=== PATIENT | male | born 1945 | race African-American/Black ===

== ENCOUNTER → 2016-12-21 | Outpatient (CLI) | payer MEDICARE, OTHER ==
[~2016-12-21] MED LIST: ACET50TAOT PO; ASCO25TA PO; ATOR40TA PO; CHLO125TA PO; K-TA1TAB PO; OMEP20CA3 PO; PLAV75TA38 PO; TRIA37.5 PO
[2016-12-21 11:40] LABS: MEAN CORPUSCULAR HEMOGLOBIN 29.3 pg (27.0-33.0); MEAN CORPUSCULAR HGB CONC 31.4 g/dl (32.0-36.5); MEAN CORPUSCULAR VOLUME 93.2 fl (80.0-96.0); RED CELL DISTRIBUTION WIDTH 11.8 % (11.5-14.5); WHITE BLOOD COUNT 5.5 K/mm3 (4.0-10.0)
[2016-12-21 12:34] LABS: ALBUMIN 4.1 GM/DL (3.2-5.2); ALBUMIN/GLOBULIN RATIO 1.05 (1.00-1.93); ALKALINE PHOSPHATASE 122 U/L (45-117); ALT/SGPT 60 U/L (12-78); ANION GAP 8 MEQ/L (8-16); AST/SGOT 33 U/L (15-37); BILIRUBIN,TOTAL 0.9 MG/DL (0.2-1.0); BLOOD UREA NITROGEN 21 MG/DL (7-18); CALCIUM LEVEL 9.1 MG/DL (8.8-10.2); CARBON DIOXIDE LEVEL 32 MEQ/L (21-32); CHLORIDE LEVEL 100 MEQ/L (98-107); CHOLESTEROL LEVEL 136 MG/DL (<200); CREATININE FOR GFR 1.07 MG/DL (0.70-1.30); GLOMERULAR FILTRATION RATE > 60.0 (>42); GLUCOSE, FASTING 79 MG/DL (83-110); POTASSIUM SERUM 3.7 MEQ/L (3.5-5.1); SODIUM LEVEL 140 MEQ/L (136-145); TRIGLYCERIDES LEVEL 40 MG/DL (<150)
--- NOTE | 2016-12-21 17:23 | REP ---
Chest x-ray: Two views: History: Hypertension. Comparison chest x-ray: 10/04/2015. Findings: The lungs are symmetrically aerated and clear. A bipolar pacemaker is seen in the right heart via the left side as before. Heart is not enlarged. Pulmonary vasculature is not increased. The aorta is somewhat tortuous. There is a mild levoconvex curvature in the mid thoracic spine unchanged. Pleural angles are sharp. Impression: Bipolar pacemaker in place. Otherwise no acute disease. Signed by Zeb Segura MD 12/22/2016 08:05 A
--- NOTE | 2016-12-21 19:08 | ECGEPIP ---
Stationary ECG Study [facility] Test Date: 2016-12-21 Pat Name: AMAN JIANG Department: Room: - Gender: M Linen Room Worker: RISSA : 1945 Requested By: Anita Crowe Order Number: [id number] Reading MD: Tejinder Zheng Measurements Intervals [place] Rate: 70 P: 71 ID: [id number] QRS: -66 QRSD: 205 T: 91 QT: 463 QTc: 501 Interpretive Statements SINUS RHYTHM A-SENSED V-PACED RHYTHM WITH SINGLE PVC SIMILAR 09/22/15 Electronically Signed On 12-21-2016 19:07:47 EDT by Tejinder Zheng
== END ==
LOC: M LAB 10:34
PROVIDERS: ATTEND Family Medicine
DX: I10 Essential (primary) hypertension (principal); R53.83 Other fatigue; Z95.0 Presence of cardiac pacemaker; Z79.899 Other long term (current) drug therapy

== ENCOUNTER → 2018-07-24 | Outpatient (CLI) | payer MEDICARE, OTHER ==
[2018-07-24 11:27] LABS: APPEARANCE, URINE CLEAR (CLEAR); BACTERIA, URINE AUTO NEGATIVE (NEGATIVE); BILIRUBIN, URINE AUTO NEGATIVE (NEGATIVE); BLOOD, URINE BLOOD NEGATIVE (NEGATIVE); COLOR, URINE YELLOW (YELLOW); GLUCOSE, URINE (UA) AUTO NEGATIVE (NEGATIVE); KETONE, URINE AUTO NEGATIVE (NEGATIVE); LEUKOCYTE ESTERASE, URINE AUTO NEGATIVE (NEGATIVE); NITRITE, URINE AUTO NEGATIVE (NEGATIVE); PROTEIN, URINE AUTO NEGATIVE (NEGATIVE); RBC, URINE AUTO 2 /HPF (0-3); SPECIFIC GRAVITY URINE AUTO 1.015 (1.002-1.035); SQUAMOUS EPITHELIAL CELL UR AU 0 /HPF (0-6); UROBILINOGEN, URINE AUTO 0.2 mg/dL (0.0-2.0); WBC, URINE AUTO 0 /HPF (0-3)
[2018-07-24 11:39] LABS: HEMATOCRIT 40.9 % (42.0-52.0); HEMOGLOBIN 13.1 g/dl (13.5-17.5); MEAN CORPUSCULAR HEMOGLOBIN 29.3 pg (27.0-33.0); MEAN CORPUSCULAR VOLUME 91.5 fl (80.0-96.0); PLATELET COUNT, AUTOMATED 226 10^3/uL (150-450); RED BLOOD COUNT 4.47 10^6/uL (4.30-6.10); RED CELL DISTRIBUTION WIDTH 11.6 % (11.5-14.5); WHITE BLOOD COUNT 4.9 10^3/uL (4.0-10.0)
[2018-07-24 12:17] LABS: ALBUMIN 4.2 GM/DL (3.2-5.2); ALBUMIN/GLOBULIN RATIO 1.14 (1.00-1.93); ALKALINE PHOSPHATASE 111 U/L (45-117); ALT/SGPT 50 U/L (12-78); ANION GAP 5 MEQ/L (8-16); AST/SGOT 26 U/L (7-37); BILIRUBIN,TOTAL 0.7 MG/DL (0.2-1.0); BLOOD UREA NITROGEN 20 MG/DL (7-18); CALCIUM LEVEL 9.2 MG/DL (8.8-10.2); CARBON DIOXIDE LEVEL 33 MEQ/L (21-32); CHLORIDE LEVEL 101 MEQ/L (98-107); CREATININE FOR GFR 1.17 MG/DL (0.70-1.30); GLOMERULAR FILTRATION RATE > 60.0 (>42); GLUCOSE, FASTING 92 MG/DL (70-100); POTASSIUM SERUM 4.1 MEQ/L (3.5-5.1); PROSTATIC SPECIFIC AG MONITOR 2.8 NG/ML (< 4.0); SODIUM LEVEL 139 MEQ/L (136-145); TOTAL PROTEIN 7.9 GM/DL (6.4-8.2)
== END ==
LOC: M LAB 10:36
DX: M53.84 Other specified dorsopathies, thoracic region (principal); R31.9 Hematuria, unspecified; Z95.0 Presence of cardiac pacemaker
CPT/HCPCS: 71046

== ENCOUNTER → 2018-07-26 | Outpatient (CLI) | payer MEDICARE, OTHER | LOC: M RAD 10:20 | DX: K76.89 Other specified diseases of liver (principal); N28.1 Cyst of kidney, acquired; N40.0 Benign prostatic hyperplasia without lower urinary tract symptoms; R31.0 Gross hematuria; Z95.0 Presence of cardiac pacemaker | CPT/HCPCS: 74176 ==

== ENCOUNTER → 2018-08-04 | Outpatient (REF) | payer MEDICARE, OTHER ==
[2018-08-04 18:02] LABS: APPEARANCE, URINE CLEAR (CLEAR); BACTERIA, URINE AUTO NEGATIVE (NEGATIVE); BILIRUBIN, URINE AUTO NEGATIVE (NEGATIVE); BLOOD, URINE BLOOD NEGATIVE (NEGATIVE); COLOR, URINE STRAW (YELLOW); GLUCOSE, URINE (UA) AUTO NEGATIVE (NEGATIVE); KETONE, URINE AUTO NEGATIVE (NEGATIVE); LEUKOCYTE ESTERASE, URINE AUTO NEGATIVE (NEGATIVE); NITRITE, URINE AUTO NEGATIVE (NEGATIVE); PROTEIN, URINE AUTO NEGATIVE (NEGATIVE); RBC, URINE AUTO 0 /HPF (0-3); SPECIFIC GRAVITY URINE AUTO 1.005 (1.002-1.035); SQUAMOUS EPITHELIAL CELL UR AU 0 /HPF (0-6); UROBILINOGEN, URINE AUTO 0.2 mg/dL (0.0-2.0); WBC, URINE AUTO 0 /HPF (0-3)
== END ==
LOC: M SMT 16:50
DX: R36.1 Hematospermia (principal)
CPT/HCPCS: 81001

== ENCOUNTER → 2019-03-12 | Outpatient (CLI) | payer MEDICARE, OTHER ==
[~2019-03-12] MED LIST changes: +ACET500T15 PO; -ACET50TAOT PO; -ASCO25TA PO; -ATOR40TA PO; +ATOR40TA75 PO; -OMEP20CA3 PO; +OMEP20CA4 PO; +PLAV1TAB2 PO; -PLAV75TA38 PO; +VITA1TAB23 PO
== END ==
LOC: M LAB 09:04
PROVIDERS: ATTEND Urology
DX: N13.8 Other obstructive and reflux uropathy (principal); N40.1 Benign prostatic hyperplasia with lower urinary tract symptoms
CPT/HCPCS: 36415; G0103

== ENCOUNTER → 2019-03-21 | Outpatient (CLI) | payer MEDICARE, OTHER ==
[~2019-03-21] MED LIST changes: +OMEP1CAP73 PO; -OMEP20CA4 PO
[2019-03-21 10:09] LABS: HEMATOCRIT 36.8 % (42.0-52.0); HEMOGLOBIN 11.5 g/dl (13.5-17.5); MEAN CORPUSCULAR HEMOGLOBIN 29.1 pg (27.0-33.0); MEAN CORPUSCULAR HGB CONC 31.3 g/dl (32.0-36.5); MEAN CORPUSCULAR VOLUME 93.2 fl (80.0-96.0); PLATELET COUNT, AUTOMATED 198 10^3/uL (150-450); RED BLOOD COUNT 3.95 10^6/uL (4.30-6.10); WHITE BLOOD COUNT 5.6 10^3/uL (4.0-10.0)
[2019-03-21 10:43] LABS: ALBUMIN 3.9 GM/DL (3.2-5.2); ALT/SGPT 39 U/L (12-78); BILIRUBIN,TOTAL 0.9 MG/DL (0.2-1.0); BLOOD UREA NITROGEN 17 MG/DL (7-18); CALCIUM LEVEL 9.2 MG/DL (8.8-10.2); CARBON DIOXIDE LEVEL 31 MEQ/L (21-32); CHLORIDE LEVEL 104 MEQ/L (98-107); CHOLESTEROL LEVEL 107 MG/DL (<200); CHOLESTEROL RISK RATIO 2.276 (<5); CREATININE FOR GFR 1.06 MG/DL (0.70-1.30); GLOMERULAR FILTRATION RATE > 60.0 (>42); GLUCOSE, FASTING 83 MG/DL (70-100); HDL CHOLESTEROL 47 MG/DL (>40); LDL CHOLESTEROL 51 MG/DL (<100); NON-HDL-C 60 MG/DL; POTASSIUM SERUM 3.5 MEQ/L (3.5-5.1); SODIUM LEVEL 140 MEQ/L (136-145); TOTAL PROTEIN 7.3 GM/DL (6.4-8.2); TRIGLYCERIDES LEVEL 45 MG/DL (<150)
[2019-03-21 10:58] LABS: TESTOSTERONE 425 NG/DL (241-827)
--- NOTE | 2019-03-21 11:23 | REP ---
CHEST, TWO VIEWS: HISTORY: Hypertension. COMPARISON: 07/24/2018 The lungs are clear. The heart is normal in size. The pulmonary vasculature is normal in appearance. The bony structure is intact. A cardiac pacemaker was present. IMPRESSION: No acute disease. Unreviewed
--- NOTE | 2019-03-22 08:37 | ECGEPIP ---
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
== END ==
LOC: M LAB 09:31
PROVIDERS: ATTEND Family Medicine
DX: R53.83 Other fatigue (principal); I10 Essential (primary) hypertension; E11.9 Type 2 diabetes mellitus without complications; R97.20 Elevated prostate specific antigen [PSA]

== ENCOUNTER → 2019-03-27 | Outpatient (CLI) | payer MEDICARE, OTHER ==
[~2019-03-27] MED LIST changes: -OMEP1CAP73 PO; +OMEP20CA4 PO
--- NOTE | 2019-03-27 15:08 | REP ---
Prostate sonography: History: Prostate nodule. Sonographic findings: Trans rectal prostate sonography demonstrates unremarkable seminal vesicles. Prostate gland is heterogeneously enlarged with calcifications and cystic changes noted. Glandular dimensions are measured at 5.1 x 4.0 x 4.9 cm with a calculated glandular volume of 52.9 ml. There is a hypoechoic nodule 1.0 x 0.9 x 0.8 cm in the left base. A hypoechoic nodule is seen in the right base 1.0 cm in diameter. A 0.7 cm nodule is visualized in the right mid prostate. Transrectal sonographic guidance is provided to Dr. Marin who performed trans rectal ultrasound guided needle biopsy procedure . Electronically Signed by Zeb Segura MD 03/27/2019 02:59 P
== END ==
LOC: M SMT PRO 08:14
PROVIDERS: ATTEND Urology
DX: C61 Malignant neoplasm of prostate (principal)
CPT/HCPCS: 55700; 76872; 76942; G0416

== ENCOUNTER → 2019-04-26 | Outpatient (CLI) | payer MEDICARE, OTHER ==
--- NOTE | 2019-04-27 14:52 | RADONC ---
RADIATION ONCOLOGY NEW CONSULTATION DATE: 04/26/2019 CHART NUMBER: [id number] DIAGNOSES: Adenocarcinoma, prostate Michelle this 7 (4+3). STAGE: Group stage II C, [id number] less than 10, grade III. ICD CODE: C61. ECOG PERFORMANCE STATUS: 0. REFERRING PHYSICIANS: Dr. Hinojosa and Dr. Goldy Marin HISTORY OF PRESENT ILLNESS: The patient is a 73-year-old male who is referred for evaluation of prostate cancer. Apparently, an abnormality was palpated on his digital rectal examination with some firmness in the base of the prostate, which led to a PSA, which was 2.8. A CT scan of the pelvis back in 2018 did show some diffuse enlargement of the pelvis but most recently the ultrasound confirmed the presence of an enlarged prostate estimated at 52.9 mL with a hypoechoic area in the right base measuring 1 cm and a 0.7 cm nodule seen in the right mid. A biopsy was performed again on 03/27/2019, which revealed adenocarcinoma involving the right apex Sarles 7 (4+3), as well as the right lateral apex, which revealed a Michelle 7 (4+3) and 60% of the specimen was inolved. The right apex initial biopsy showed approximately 30% of the sample involved. The patient tolerated his procedure relatively well with no significant untoward side effects but comes today to discuss the role of definitive external beam radiotherapy, which has been his preference as to treatment modalities. PAST MEDICAL HEALTH: Pacemaker placement in the past, hypertension, hypothyroidism, hypercholesterolemia, gastroesophageal reflux disease (GERD), kidney stones, right renal cyst, spinal degenerative disease, constipation, chronic diverticulosis. PAST SURGICAL HISTORY: Pacemaker placement and TURS biopsy 03/27/2019. FAMILY HISTORY OF CANCER: His father is but mother is still alive. The patient has one son who is healthy. SOCIAL HISTORY: The patient currently is a nonsmoker. He worked in [employer]. ALCOHOL HISTORY: He is currently a nondrinker. ALLERGIES: NO KNOWN DRUG ALLERGIES. CURRENT MEDICATIONS: - potassium 20 mEq one pack per day - omeprazole 20 mg capsules delayed release 1 capsule orally daily - Plavix 75 mg 1 tablet orally twice daily - vitamin C daily - Atorvastatin 40 mg 1 tablet daily - Synthroid 50 mcg 1 tablet on an empty stomach in the morning - chlorthalidone 25 mg 1 tablet in the morning with food - doxazosin one tablet orally twice a day - probiotic capsule daily - Flomax 0.4 mg daily REVIEW OF SYSTEMS: Respiratory: The patient denies any cough, dyspnea, hemoptysis, hiccups, pleuritic pain or wheezing. Psychiatric: Denies delusions, hallucinations, mood changes. Neurologic: Denies disorientation, dizziness, problems with gait, headaches, insomnia, memory loss or neuropathy. He also denies paralysis, seizure activity, sensory problems or stroke. Neck: Denies masses, muscle weakness, pain, changes in his range of motion or swelling. Musculoskeletal: Denies significant arthritis, but he may have some minimal degenerative joint disease noted in his spine. He does have occasional bone pain and joint pain. He denies any muscle weakness or significant decreases in his range of motion. Lymphatic: Denies easy bruising or lymphadenopathy. Genitourinary: Denies significant dysuria or frequency. He has no hematuria. There may be issues with impotence and minimal incontinence but he denies nocturia, renal stone disease, scrotal swelling, urgency or urine color changes. Gastrointestinal: Denies constipation. On further questioning, the patient may have intermittent constipation with diarrhea. He has a history of GERD with heartburn and dyspepsia. He denies hematemesis, hematochezia, hemorrhoids, melena, significant nausea, pain, early satiety or vomiting. HEENT: Denies ear pain, epistaxis. He does have a minimal amount of esophagitis with his GERD. He may be slightly hearing impaired. Denies mouth dryness, oral bleeding, otitis, sinusitis, sputum production, stomatitis, alteration in his taste or tinnitus. Constitutional: He has some minor decrease of appetite with occasional fatigue but denies fever, lethargy, malaise, night sweats, rigors, chills or significant weight change. Cardiovascular: The patient has had a history of arrhythmias and has a pacemaker in place. He may have a past history of chest pain but none recent. He denies edema, orthopnea or significant palpitations. Breasts: Bilaterally symmetric without nipple discharge or masses. Allergic/Immunologic: Denies allergies or adverse reactions. Vital signs: Weight 178.4 pounds, temperature 97.8, pulse 76, respirations 18, systolic 117, diastolic 70, O2 saturation 98% on room air. HEENT: Normocephalic. EOMs intact. PERRLA. Fundi benign. The patient appears to be wearing a hearing aid in his right ear and is partially hearing impaired. Lymphatics: No palpable peripheral lymphadenopathy is appreciated. Lungs are clear to auscultation and percussion. Heart: Regular without audible murmurs. The pacemaker is implanted. Abdomen: Without evidence of hepatomegaly, masses, deep abdominal tenderness. Extremities: Without cyanosis, clubbing or edema. Neurologic: Examination grossly physiologic. The patient has a slightly asymmetric prostate with some firmness located in the right lobe. LABORATORY DATA/X-RAYS FINDINGS: Ultrasound obtained on 03/27/2019 revealed a prostate with a volume of approximately 52.9 mL with hypoechoic area in the right base and right mid. IMPRESSION: Stage II C, [id number] adenocarcinoma prostate located primarily in the right apex and a right apex lateral. The tumor was noted to be a Sarles 7 (4+3) with a PSA of 2.80. PLAN OF RADIOTHERAPY: The patient will be receiving androgen deprivation therapy in the form of Eligard at 45 mg. He is scheduled to have his fiduciary markers placed by Dr. Marin, and Dr. Marin will be administering the Eligard as well. The patient will then return for simulation and will be simulated upon our CT simulator where upon an IMRT plan/IGRT plan will be formulated. Prior to treatment delivery, localization will be accomplished as stated on our CT simulator and treatment portals defined by the use of multiple leaf collimators. The indications, possible side effects, as well as alternatives to radiotherapy have been explained to the patient. These include but are not necessarily limited to radiation proctitis, irritation of the base of the bladder causing increased frequency, possible hematuria and potential diarrhea. He may have some minimal skin changes but this is not certainly the normal. He understands the common side effects and is willing to proceed as outlined. Thank you for referring this very fine gentleman to us and allowing us the opportunity of participation in his overall management. cc: MD Sebastien Crowley MD
== END ==
LOC: M ONCR 07:43
PROVIDERS: ATTEND Radiology Radiation Oncology
DX: C61 Malignant neoplasm of prostate (principal); I10 Essential (primary) hypertension; E03.9 Hypothyroidism, unspecified; K21.9 Gastro-esophageal reflux disease without esophagitis; K57.30 Diverticulosis of large intestine without perforation or abscess without bleeding; N20.0 Calculus of kidney; N28.1 Cyst of kidney, acquired; Z95.0 Presence of cardiac pacemaker

== ENCOUNTER → 2019-05-15 | Outpatient (CLI) | payer MEDICARE, OTHER ==
--- NOTE | 2019-05-15 15:33 | REP ---
Limited prostate sonography for guidance: History: Elevated PSA. Transrectal prostate sonographic guidance provided to Dr. Marin who placed prostate fiducial markers. Electronically Signed by Zeb Segura MD 05/15/2019 03:34 P
== END ==
LOC: M SMT 08:12
PROVIDERS: ATTEND Urology
DX: C61 Malignant neoplasm of prostate (principal)
CPT/HCPCS: 55876; 76872; 76942; 96402; J9217

== ENCOUNTER → 2019-06-14 | Outpatient (RCR) | payer MEDICARE, OTHER ==
[2019-05-29 14:54] LABS: HEMOGLOBIN 12.3 g/dl (13.5-17.5); LYMPH % 38.2 % (24.0-44.0); MEAN CORPUSCULAR HEMOGLOBIN 30.1 pg (27.0-33.0); MEAN CORPUSCULAR HGB CONC 32.4 g/dl (32.0-36.5); NEUTROPHILS # 2.5 10^3/uL (1.8-7.7); NEUTROPHILS % 54.1 % (36.0-66.0); RED BLOOD COUNT 4.09 10^6/uL (4.30-6.10); WHITE BLOOD COUNT 4.7 10^3/uL (4.0-10.0)
--- NOTE | 2019-05-30 10:36 | RADONC ---
RADIATION ONCOLOGY SIMULATION NOTE DATE: 05/29/2019 CHART NUMBER: [id number] Mr. Kiser was taken to the CT scan for CT simulation of his prostate field. CT was accomplished without difficulty or discomfort. Radiation treatment planning is underway and radiation treatments will begin subsequently. An immobilization device was created and will be used throughout the course of treatment here. It was created without difficulty or discomfort. Radiation treatment planning is underway and radiation treatments will begin subsequently. I was physically present throughout the course of CT simulation.
--- NOTE | 2019-06-11 10:02 | RADONC ---
RADIATION ONCOLOGY PROGRESS NOTE DATE: 06/11/2019 CHART NUMBER: [id number] PROGRESS NOTE: Mr. Kiser is presently at a dose of 1080 cGy to his prostate and is tolerating treatments quite well at this point with no complaints related to his radiation therapy. He is having no urinary or bowel difficulties and no bone pain. REVIEW OF SYSTEMS: The patient's review of systems is positive for continued impotence but is otherwise noncontributory. Denies nausea, vomiting, fevers, chills, night sweats, diplopia, headaches, anxiety or depression, anorexia, weight loss, visual disturbances, chest pain, urinary or bowel difficulties, bone pain, or neurological problems. PHYSICAL EXAMINATION: The patient's skin is in good condition with no evidence of radiation change present. There is no moist or dry desquamation. The remainder of his physical exam remains unchanged. Mr. Kiser is tolerating treatments quite well and radiation will continue as scheduled.
== END ==
LOC: M ONCR 05-29 13:48
PROVIDERS: ATTEND Radiology Radiation Oncology
DX: C61 Malignant neoplasm of prostate (principal)

== ENCOUNTER 2019-07-11 08:16 | Outpatient (RCR) | payer MEDICARE, OTHER ==
--- NOTE | 2019-06-18 13:47 | RADONC ---
RADIATION ONCOLOGY PROGRESS NOTE DATE: 06/18/2019 CHART NUMBER: [id number] Mr. Kiser, with a diagnosis of prostate cancer, stage II C, is currently receiving local regional radiotherapy and he has achieved a dose thus far of 1980 cGy. So far he is tolerating his radiotherapy well with no significant untoward side effects. REVIEW OF SYSTEMS: He denies any nausea, vomiting, diarrhea, dysuria, hematuria or blood per rectum. His energy level is such that he is able to maintain most of his day-to-day activities without any alteration of his lifestyle. Skin irritation is denied. EXAMINATION FINDINGS: The skin within the irradiated volume shows neither erythema nor desquamation. Lymphatics: No palpable peripheral lymphadenopathy is appreciated. Lungs are clear to auscultation and percussion. Heart: Regular without murmurs. Abdomen: Without evidence of hepatomegaly, masses, deep abdominal tenderness. The remainder of the physical examination is unchanged. IMPRESSION: Tolerating therapy well. PLAN: Treatments to continue. MTDD
--- NOTE | 2019-06-25 10:10 | RADONC ---
RADIATION ONCOLOGY PROGRESS NOTE DATE OF SERVICE: 06/25/2019 CHART NUMBER: [id number]. PROGRESS NOTE: Mr. Kiser is presently at a dose of 2880 cGy to his prostate and is tolerating treatments quite well at this point with no complaints related to his radiation therapy. He is having no urinary or bowel difficulties. No bone pain. REVIEW OF SYSTEMS: The patient's review of systems is noncontributory. He denies nausea, vomiting, fevers, chills, night sweats, diplopia, headaches, anxiety or depression, anorexia, weight loss, visual disturbances, chest pain, urinary or bowel difficulties, bone pain, or neurological problems. PHYSICAL EXAMINATION: The patient's skin is in good condition with no evidence of radiation change present. There is no moist or dry desquamation. The remainder of his physical exam remains unchanged. Mr. Kiser is tolerating treatments quite well, and radiation will continue as scheduled.
--- NOTE | 2019-07-03 09:15 | RADONC ---
RADIATION ONCOLOGY PROGRESS NOTE DATE: 07/02/2019 CHART NUMBER: [id number] PROGRESS NOTE: Mr. Kiser is presently at a dose of 3780 cGy to his prostate and overall is tolerating his treatments quite well. REVIEW OF SYSTEMS: He did report some slight rectal bleeding, but otherwise his review of systems is noncontributory. Denies nausea, vomiting, fevers, chills, night sweats, diplopia, headaches, anxiety or depression, anorexia, weight loss, visual disturbances, chest pain, urinary or bowel difficulties, bone pain, or neurological problems. PHYSICAL EXAMINATION: The patient's skin is in good condition with no evidence of radiation change present. There is no moist or dry desquamation. The remainder of his physical exam remains unchanged. Ms. Kiser is tolerating treatments quite well and radiation will continue as scheduled.
--- NOTE | 2019-07-11 07:13 | RADONC ---
RADIATION ONCOLOGY PROGRESS NOTE: DATE: 07/09/2019 CHART NUMBER: [id number] Mr. Kiser is presently at a dose of 4680 cGy to his prostate and is tolerating treatments quite well at this point with no complaints related to his radiation therapy. He is having no urinary or bowel difficulties and no bone pain. REVIEW OF SYSTEMS: The patient's review of systems is noncontributory. He denies nausea, vomiting, fevers, chills, night sweats, diplopia, headaches, anxiety or depression, anorexia, weight loss, visual disturbances, chest pain, urinary or bowel difficulties, bone pain, or neurological problems. PHYSICAL EXAMINATION: The patient's skin is in good condition with no evidence of radiation change present. There is no moist or dry desquamation. The remainder of his physical exam remains unchanged. Mr. Kiser is tolerating treatments quite well and radiation will continue as scheduled.
[~2019-07-11 08:16] MED LIST changes: +OMEP-172 PO; -OMEP20CA4 PO
== END 2019-07-14 ==
LOC: M ONCR 08:16
PROVIDERS: ATTEND Radiology Radiation Oncology
DX: C61 Malignant neoplasm of prostate (principal)

== ENCOUNTER 2019-08-03 16:41 | Emergency (ER) | payer MEDICARE, OTHER ==
[~2019-08-03] VITALS: Ht 180.3 cm; Wt 79.5 kg
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
[2019-08-03 19:50] VITALS: BP 126/70
== END 2019-08-03 19:50 | disposition home or self-care (01) ==
LOC: M ED 16:41
DX: S09.90XA Unspecified injury of head, initial encounter (principal); S16.1XXA Strain of muscle, fascia and tendon at neck level, initial encounter; S39.012A Strain of muscle, fascia and tendon of lower back, initial encounter; V49.40XA Driver injured in collision with unspecified motor vehicles in traffic accident, initial encounter; C61 Malignant neoplasm of prostate; I10 Essential (primary) hypertension; E78.5 Hyperlipidemia, unspecified; Z86.73 Personal history of transient ischemic attack (TIA), and cerebral infarction without residual deficits; Z79.2 Long term (current) use of antibiotics; Z79.899 Other long term (current) drug therapy

== ENCOUNTER 2019-08-06 08:08 | Outpatient (RCR) | payer MEDICARE, OTHER ==
--- NOTE | 2019-07-17 10:19 | RADONC ---
RADIATION ONCOLOGY NOTE DATE OF SERVICE: 07/17/2019 CHART #: [id number] Mr. Kiser is a 74-year-old gentleman with a diagnosis of prostate CA. So far, he has received a dose of 4680 cGy to his prostate in 180 cGy daily fractions. He has no complaints. He is currently using tamsulosin for urgency and frequency. He has no bowel problems. He has no other complaints. He is tolerating treatment fairly well without any other side effects. Treatment will continue as scheduled. MTDD
--- NOTE | 2019-07-23 13:33 | RADONC ---
RADIATION ONCOLOGY PROGRESS NOTE DATE: 07/23/2019 CHART #: [id number] Mr. Kiser is presently at a dose of 6120 cGy to his prostate and is tolerating treatments quite well at this point with no significant difficulties related to his radiation therapy. He is having no urinary or bowel difficulties and no bone pain. REVIEW OF SYSTEMS: The patient's review of systems is noncontributory. Denies nausea, vomiting, fevers, chills, night sweats, diplopia, headaches, anxiety or depression, anorexia, weight loss, visual disturbances, chest pain, urinary or bowel difficulties, bone pain, or neurological problems. PHYSICAL EXAMINATION: The patient's skin is in good condition with no evidence of radiation change present. There is no moist or dry desquamation. The remainder of his physical exam remains unchanged. Mr. Kiser is tolerating treatments quite well and radiation will continue as scheduled.
--- NOTE | 2019-08-01 06:25 | RADONC ---
RADIATION ONCOLOGY PROGRESS NOTE DATE: 07/30/2019 CHART #: [id number] Mr. Kiser is presently at a dose of 7020 cGy to his prostate and is tolerating treatments quite well at this point with no significant difficulties related to his radiation therapy. He is having no significant urinary or bowel problems. REVIEW OF SYSTEMS: The patient's review of systems is noncontributory. He does have some urinary issues with a little dribbling and hesitancy, but is otherwise noncontributory. Denies nausea, vomiting, fevers, chills, night sweats, diplopia, headaches, anxiety or depression, anorexia, weight loss, visual disturbances, chest pain, urinary or bowel difficulties, bone pain, or neurological problems. PHYSICAL EXAMINATION: The patient's skin is in good condition with no evidence of radiation change present. There is no moist or dry desquamation. The remainder of his physical exam remains unchanged. Mr. Kiser is tolerating treatments quite well and radiation will continue as scheduled.
--- NOTE | 2019-08-10 08:25 | RADONC ---
RADIATION ONCOLOGY TREATMENT SUMMARY DATE: 08/06/2019 CHART #: [id number] DIAGNOSIS: Adenocarcinoma, prostate, Michelle score 7 (4+3). STAGE: Group stage II C, [id number], less than 10, grade 3. ECOG PERFORMANCE STATUS: 0. REFERRING PHYSICIANS: Dr. Hinojosa and Dr. Goldy Marin. PLAN OF RADIOTHERAPY: Definitive. DATE RADIOTHERAPY STARTED: July 05. DATE RADIOTHERAPY COMPLETED: August 06 dose. The patient received a total of 6920cGy administered in 34 fractions over 62 elapsed days. Prior to treatment delivery, localization was accomplished upon our CT simulator and treatment portals defined by the use of multiple leaf collimators. STATUS OF TUMOR: There was neither evidence of local regional progression nor clinical evidence of distant metastatic spread during his course of radiotherapy. DISPOSITION: Return to clinic in 1 month for post radiotherapy followup visit and skin check. He was advised to return to his referring physicians as per their directions and instructions. Thank you for allowing us the opportunity of participation in the management of this very fine gentleman. NINA
== END 2019-08-14 ==
LOC: M ONCR 08:08
PROVIDERS: ATTEND Radiology Radiation Oncology
DX: C61 Malignant neoplasm of prostate (principal)

== ENCOUNTER → 2019-09-10 | Outpatient (CLI) | payer MEDICARE ==
[~2019-09-10] MED LIST changes: -OMEP-172 PO; +OMEP1CAP73 PO
== END ==
LOC: M LAB 08:15
PROVIDERS: ATTEND Radiology Radiation Oncology
DX: C61 Malignant neoplasm of prostate (principal)

== ENCOUNTER → 2019-09-12 | Outpatient (CLI) | payer MEDICARE, OTHER ==
--- NOTE | 2019-09-13 10:37 | RADONC ---
RADIATION ONCOLOGY FOLLOWUP NOTE DATE: 09/12/2019 CHART #: [id number] DIAGNOSIS: Prostate cancer. STAGE: II C, T2a, N0, M0, PSA less than 10, Michelle score 7 (4-3). ECOG PERFORMANCE STATUS: 0. FOLLOWUP NOTE: Mr. Kiser is a very pleasant 73-year-old black male with the diagnosis of a stage II C, T2a, N0, M0, moderate to poorly differentiated Aline score 7 4-3) adenocarcinoma of the prostate who is presenting to us today for routine followup visit 1 month post completion of external beam radiation therapy. The patient presents today reporting that he is doing quite well with no complaints at this time related to his radiation therapy or disease. He has no urinary or bowel difficulties. No bone pain. REVIEW OF SYSTEMS: The patient's review of systems is noncontributory. Denies nausea, vomiting, fevers, chills, night sweats, diplopia, headaches, anxiety or depression, anorexia, weight loss, visual disturbances, chest pain, urinary or bowel difficulties, bone pain, or neurological problems. PHYSICAL EXAMINATION: The patient is a well-developed, well-nourished black male in no acute distress. HEENT exam is normocephalic, atraumatic. Extraocular movements are intact. There is no palpable cervical, supraclavicular, infraclavicular, axillary, or inguinal lymphadenopathy present. Lungs are clear to auscultation and percussion. Heart has a regular rate and rhythm. Abdomen is benign with no hepatosplenomegaly, masses, or tenderness. Rectal examination reveals a normal anal sphincter tone. His prostate is smooth with no evidence of nodularity. Skeletal examination reveals no tenderness to pressure or percussion of the bony skeleton. Extremities reveal no clubbing, cyanosis, or edema. Neurologic exam is grossly intact, as is the remainder of the physical examination. ASSESSMENT: The patient is clinically MARIA DEL ROSARIO at this time. He is scheduled see Dr. Marin next week for routine followup and will be continuing his routine followup with his urologist, Dr. Marin. In light of this, I am discharging him from my followup except on a p.r.n. basis. cc: MD Sebastien Crowley MD
== END ==
LOC: M ONCR 08:34
PROVIDERS: ATTEND Radiology Radiation Oncology
DX: C61 Malignant neoplasm of prostate (principal)

== ENCOUNTER → 2019-12-17 | Outpatient (CLI) | payer MEDICARE, OTHER | LOC: M LAB 10:25 | PROVIDERS: ATTEND Urology | DX: C61 Malignant neoplasm of prostate (principal) ==

== ENCOUNTER 2020-02-13 12:30 | Emergency (ER) | payer MEDICARE, OTHER ==
[~2020-02-13] VITALS: Ht 177.8 cm; Wt 87.2 kg
[2020-02-13] MEDS ORDERED: RABIES IMMUNE GLOBULIN 1500 INTERNATIONAL UNIT/5ML VIAL (90375) IM ONE ×3 (13:30→14:00)
[2020-02-13] MEDS ORDERED: BOOSTRIX/ADACEL VACCINE (DIPHTH/PERTUSS/ACELL/TETANUS) 0.5ML SYR IM ONE (13:30)
[2020-02-13] MEDS ORDERED: AUGMENTIN 875 MG TAB PO ONE (13:30)
[2020-02-13] MEDS ORDERED: RABIES VACCINE HUMAN 2.5 INTERNATIONAL UNITS/ML VIAL (90675) IM ONE (13:30)
[2020-02-13] MEDS ORDERED: RABIES IMMUNE GLOBULIN 300 INTERNATIONAL UNITS/1ML VIAL (90375) IM ONE (14:00)
[2020-02-13] MEDS ORDERED: AUGM875T28 PO (14:30)
[2020-02-13 14:41] VITALS: BP 144/74
== END 2020-02-13 14:43 | disposition home or self-care (01) ==
LOC: M ED 12:30
DX: Z23 Encounter for immunization (principal); Z20.3 Contact with and (suspected) exposure to rabies; W55.89XA Other contact with other mammals, initial encounter; Z79.899 Other long term (current) drug therapy

== ENCOUNTER 2020-02-16 09:12 | Emergency (ER) | payer MEDICARE, OTHER ==
[~2020-02-16] VITALS: Ht 177.8 cm; Wt 88.7 kg
[~2020-02-16 09:12] MED LIST changes: +AUGM875T28 PO
[2020-02-16] MEDS ORDERED: RABIES VACCINE HUMAN 2.5 INTERNATIONAL UNITS/ML VIAL (90675) IM ONE (09:45)
[2020-02-16] MEDS ORDERED: TAMS1CAP17 PO (09:48)
[2020-02-16] MEDS ORDERED: SYNT50TA PO (09:48)
[2020-02-16 10:13] VITALS: BP 156/70
== END 2020-02-16 10:24 | disposition home or self-care (01) ==
LOC: M ED 09:12
DX: Z23 Encounter for immunization (principal); T50.Z95A Adverse effect of other vaccines and biological substances, initial encounter; R22.31 Localized swelling, mass and lump, right upper limb; Z20.3 Contact with and (suspected) exposure to rabies; Z79.01 Long term (current) use of anticoagulants; Z79.2 Long term (current) use of antibiotics; Z79.899 Other long term (current) drug therapy

== ENCOUNTER 2020-02-20 07:03 | Emergency (ER) | payer MEDICARE, OTHER ==
[~2020-02-20] VITALS: Ht 180.3 cm; Wt 87.7 kg
[~2020-02-20 07:03] MED LIST changes: +ASCO250T20 PO; +SYNT50TA PO; +TAMS1CAP17 PO; -VITA1TAB23 PO
[2020-02-20 07:04] VITALS: BP 146/67
[2020-02-20] MEDS ORDERED: RABIES VACCINE HUMAN 2.5 INTERNATIONAL UNITS/ML VIAL (90675) IM ONE (07:30)
[2020-02-20] MEDS ORDERED: DOXY100C37 PO (07:34)
== END 2020-02-20 07:55 | disposition home or self-care (01) ==
LOC: M ED 07:03
DX: Z23 Encounter for immunization (principal); Z20.3 Contact with and (suspected) exposure to rabies; S61.452D Open bite of left hand, subsequent encounter; E78.49 Other hyperlipidemia; I10 Essential (primary) hypertension; Z79.2 Long term (current) use of antibiotics; Z79.899 Other long term (current) drug therapy; Y92.9 Unspecified place or not applicable; Y93.9 Activity, unspecified; Y99.9 Unspecified external cause status

== ENCOUNTER 2020-02-27 08:16 | Emergency (ER) | payer MEDICARE, OTHER ==
[~2020-02-27] VITALS: Ht 177.8 cm; Wt 87.6 kg
[~2020-02-27 08:16] MED LIST changes: +DOXY100C37 PO
[2020-02-27 08:17] VITALS: BP 151/67
[2020-02-27] MEDS ORDERED: RABIES VACCINE HUMAN 2.5 INTERNATIONAL UNITS/ML VIAL (90675) IM ONE (08:45)
== END 2020-02-27 09:17 | disposition home or self-care (01) ==
LOC: M ED 08:16
DX: Z23 Encounter for immunization (principal); Z20.3 Contact with and (suspected) exposure to rabies

== ENCOUNTER → 2020-03-13 | Outpatient (CLI) | payer MEDICARE, OTHER | LOC: M LAB 10:11 | PROVIDERS: ATTEND Urology | DX: C61 Malignant neoplasm of prostate (principal) ==

== ENCOUNTER → 2020-06-20 | Outpatient (CLI) | payer MEDICARE, OTHER ==
[2020-06-20 11:43] LABS: MEAN CORPUSCULAR HEMOGLOBIN 28.5 pg (27.0-33.0); MEAN CORPUSCULAR HGB CONC 30.6 g/dl (32.0-36.5); MEAN CORPUSCULAR VOLUME 93.3 fl (80.0-96.0); PLATELET COUNT, AUTOMATED 205 10^3/uL (150-450); RED BLOOD COUNT 3.86 10^6/uL (4.30-6.10); WHITE BLOOD COUNT 4.6 10^3/uL (4.0-10.0)
[2020-06-20 12:05] LABS: HEMOGLOBIN A1c 5.2 %
[2020-06-20 12:14] LABS: ALBUMIN 3.8 GM/DL (3.2-5.2); ALT/SGPT 25 U/L (12-78); BILIRUBIN,TOTAL 0.9 MG/DL (0.2-1.0); BLOOD UREA NITROGEN 16 MG/DL (7-18); CALCIUM LEVEL 9.8 MG/DL (8.8-10.2); CARBON DIOXIDE LEVEL 28 MEQ/L (21-32); CHLORIDE LEVEL 106 MEQ/L (98-107); CHOLESTEROL LEVEL 188 MG/DL (<200); CHOLESTEROL RISK RATIO 3.686 (<5); CREATININE FOR GFR 0.97 MG/DL (0.70-1.30); GLOMERULAR FILTRATION RATE > 60.0 (>42); GLUCOSE, FASTING 84 MG/DL (70-100); HDL CHOLESTEROL 51 MG/DL (>40); LDL CHOLESTEROL 129 MG/DL (<100); NON-HDL-C 137 MG/DL; POTASSIUM SERUM 3.9 MEQ/L (3.5-5.1); PROSTATIC SPECIFIC AG MONITOR 0.28 NG/ML (< 4.00); SODIUM LEVEL 140 MEQ/L (136-145); TESTOSTERONE 410 NG/DL (241-827); TOTAL PROTEIN 7.8 GM/DL (6.4-8.2); TRIGLYCERIDES LEVEL 38 MG/DL (<150)
--- NOTE | 2020-06-20 16:03 | REP ---
INDICATION: HTN,FATIGUE,HYPOTHYROIDISM/LAB AND EKG FIRST. COMPARISON: March 21, 2019. TECHNIQUE: Two views.. FINDINGS: The lungs are well inflated and free of infiltrate. The pleural angles are sharp. The heart size is normal. Pulmonary vasculature is not increased. No significant bony abnormality is seen. A bipolar pacemaker is again noted in the right heart view of the left side. There is a granulomatous calcification in the right base. IMPRESSION: Pacemaker in place. No active disease.. <Electronically signed by Johnny Segura > 06/20/20 0209
--- NOTE | 2020-06-21 08:11 | ECGEPIP ---
[facility] Test Date: 2020-06-20 Pat Name: AMAN JIANG Department: Room: - Gender: Male [employer]: LIZ : 1945 Requested By: Anita Crowe Order Number: [id number] Reading MD: Jose Raul Guerrero Measurements Intervals [place] Rate: 79 P: 78 CT: 166 QRS: -60 QRSD: 186 T: 95 QT: 420 QTc: 483 Interpretive Statements [employer]LECT[employer] PACEM[employer]ER Electronically Signed on 06-21-2020 8:11:12 EST by Jose Raul Guerrero
== END ==
LOC: M LAB 10:58
PROVIDERS: ATTEND Family Medicine
DX: I10 Essential (primary) hypertension (principal); R53.83 Other fatigue; E03.9 Hypothyroidism, unspecified; Z79.899 Other long term (current) drug therapy; N40.0 Benign prostatic hyperplasia without lower urinary tract symptoms

== ENCOUNTER → 2020-09-15 | Outpatient (CLI) | payer MEDICARE, OTHER | LOC: M LAB 10:57 | PROVIDERS: ATTEND Nurse Practitioner Women's Health | DX: C61 Malignant neoplasm of prostate (principal) ==

== ENCOUNTER → 2020-11-27 | Outpatient (CLI) | payer MEDICARE, OTHER ==
[2020-11-27 15:02] LABS: BLOOD UREA NITROGEN 18 MG/DL (7-18); CALCIUM LEVEL 9.4 MG/DL (8.8-10.2); CARBON DIOXIDE LEVEL 31 MEQ/L (21-32); CHLORIDE LEVEL 105 MEQ/L (98-107); CREATININE FOR GFR 0.96 MG/DL (0.70-1.30); GLOMERULAR FILTRATION RATE > 60.0 (>42); GLUCOSE, FASTING 90 MG/DL (70-100); POTASSIUM SERUM 3.5 MEQ/L (3.5-5.1); SODIUM LEVEL 140 MEQ/L (136-145)
== END ==
LOC: M LAB 10:28
PROVIDERS: ATTEND Physician Assistant
DX: I10 Essential (primary) hypertension (principal)

== ENCOUNTER → 2020-12-26 | Outpatient (CLI) | payer MEDICARE, OTHER | LOC: M LAB 10:07 | PROVIDERS: ATTEND Urology | DX: C61 Malignant neoplasm of prostate (principal) ==

== ENCOUNTER → 2020-12-29 | Outpatient (CLI) | payer MEDICARE, OTHER ==
--- NOTE | 2020-12-29 12:14 | REP ---
INDICATION: CA LUNG. COMPARISON: Comparison chest x-ray June 20, 2020. TECHNIQUE: Two views.. FINDINGS: The lungs are well inflated and free of infiltrate. The pleural angles are sharp. The heart size is normal. Pulmonary vasculature is not increased. No significant bony abnormality is seen. A dual lead pacemaker remains in place in the right heart view of the left side. IMPRESSION: Pacemaker in place. No active disease.. <Electronically signed by Johnny Segura > 12/29/20 [id number]
== END ==
LOC: M RAD 11:53
PROVIDERS: ATTEND Family Medicine
DX: R04.2 Hemoptysis (principal); Z87.891 Personal history of nicotine dependence; Z12.2 Encounter for screening for malignant neoplasm of respiratory organs

== ENCOUNTER → 2021-03-26 | Outpatient (CLI) | payer MEDICARE, OTHER ==
[~2021-03-26] MED LIST changes: -DOXY100C37 PO; +DOXY1CAP62 PO
== END ==
LOC: M LAB 10:30
PROVIDERS: ATTEND Urology
DX: C61 Malignant neoplasm of prostate (principal)

== ENCOUNTER → 2021-05-21 | Outpatient (CLI) | payer MEDICARE, OTHER ==
[2021-05-21 11:21] LABS: ALBUMIN 3.9 GM/DL (3.2-5.2); ALT/SGPT 35 U/L (12-78); BILIRUBIN,TOTAL 0.8 MG/DL (0.2-1.0); BLOOD UREA NITROGEN 19 MG/DL (7-18); CALCIUM LEVEL 9.3 MG/DL (8.8-10.2); CARBON DIOXIDE LEVEL 30 MEQ/L (21-32); CHLORIDE LEVEL 102 MEQ/L (98-107); CHOLESTEROL LEVEL 149 MG/DL (<200); CHOLESTEROL RISK RATIO 3.104 (<5); CREATININE FOR GFR 1.04 MG/DL (0.70-1.30); GLOMERULAR FILTRATION RATE > 60.0 (>42); GLUCOSE, FASTING 84 MG/DL (70-100); HDL CHOLESTEROL 48 MG/DL (>40); LDL CHOLESTEROL 91 MG/DL (<100); NON-HDL-C 101 MG/DL; POTASSIUM SERUM 3.7 MEQ/L (3.5-5.1); SODIUM LEVEL 139 MEQ/L (136-145); TOTAL PROTEIN 7.7 GM/DL (6.4-8.2); TRIGLYCERIDES LEVEL 50 MG/DL (<150)
== END ==
LOC: M LAB 08:59
PROVIDERS: ATTEND Physician Assistant
DX: E78.2 Mixed hyperlipidemia (principal)

== ENCOUNTER → 2021-07-03 | Outpatient (CLI) | payer MEDICARE, OTHER ==
[~2021-07-03] MED LIST changes: +CENT1TAB PO; +CHLO25TA PO; +CHLO50TA PO; +DOXY-443 PO; -DOXY1CAP62 PO
== END ==
LOC: M LABSMTC 09:19
PROVIDERS: ATTEND Anesthesiology
DX: Z01.812 Encounter for preprocedural laboratory examination (principal); Z20.822 Contact with and (suspected) exposure to COVID-19

== ENCOUNTER 2021-07-08 10:11 | Day surgery (SDC) | payer MEDICARE, OTHER ==
[~2021-07-08] VITALS: Ht 177.8 cm; Wt 79.8 kg
[~2021-07-08 10:11] MED LIST changes: +NS 1,000 ML IV ONE
[2021-07-08] MEDS ORDERED: propofoL 200 MG/20 ML VIAL As Ordered ONE ×2 (12:10→12:34)
[2021-07-08 13:25] VITALS: BP 142/72
== END 2021-07-08 13:39 | disposition home or self-care (01) ==
LOC: M OPP 10:11
PROVIDERS: ATTEND Internal Medicine Gastroenterology
DX: K62.5 Hemorrhage of anus and rectum (principal); K62.7 Radiation proctitis; I10 Essential (primary) hypertension; E78.5 Hyperlipidemia, unspecified; Z85.46 Personal history of malignant neoplasm of prostate; Z95.0 Presence of cardiac pacemaker

== ENCOUNTER → 2021-09-28 | Outpatient (CLI) | payer MEDICARE, OTHER ==
[~2021-09-28] MED LIST changes: -NS 1,000 ML IV ONE
== END ==
LOC: M LAB 08:32
PROVIDERS: ATTEND Urology
DX: C61 Malignant neoplasm of prostate (principal)

== ENCOUNTER → 2022-03-18 | Outpatient (CLI) | payer MEDICARE, OTHER | LOC: M LAB 10:11 | PROVIDERS: ATTEND Urology | DX: C61 Malignant neoplasm of prostate (principal) ==

== ENCOUNTER → 2022-03-18 | Outpatient (CLI) | payer MEDICARE, OTHER ==
[2022-03-18 11:28] LABS: HEMATOCRIT 37.1 % (42.0-52.0); HEMOGLOBIN 11.8 g/dl (13.5-17.5); MEAN CORPUSCULAR HEMOGLOBIN 29.5 pg (27.0-33.0); MEAN CORPUSCULAR HGB CONC 31.8 g/dl (32.0-36.5); MEAN CORPUSCULAR VOLUME 92.8 fl (80.0-96.0); PLATELET COUNT, AUTOMATED 209 10^3/uL (150-450); WHITE BLOOD COUNT 4.1 10^3/uL (4.0-10.0)
[2022-03-18 13:44] LABS: ALBUMIN 3.8 GM/DL (3.2-5.2); ALT/SGPT 35 U/L (12-78); BILIRUBIN,TOTAL 0.9 MG/DL (0.2-1.0); BLOOD UREA NITROGEN 19 MG/DL (7-18); CALCIUM LEVEL 9.4 MG/DL (8.8-10.2); CARBON DIOXIDE LEVEL 27 MEQ/L (21-32); CHLORIDE LEVEL 105 MEQ/L (98-107); CHOLESTEROL LEVEL 125 MG/DL (<200); CHOLESTEROL RISK RATIO 2.551 (<5); CREATININE FOR GFR 1.04 MG/DL (0.70-1.30); GLOMERULAR FILTRATION RATE > 60.0 (>42); GLUCOSE, FASTING 83 MG/DL (70-100); HDL CHOLESTEROL 49 MG/DL (>40); LDL CHOLESTEROL 67 MG/DL (<100); NON-HDL-C 76 MG/DL; POTASSIUM SERUM 4.2 MEQ/L (3.5-5.1); SODIUM LEVEL 138 MEQ/L (136-145); TOTAL PROTEIN 7.7 GM/DL (6.4-8.2); TRIGLYCERIDES LEVEL 43 MG/DL (<150)
[2022-03-18 14:10] LABS: TESTOSTERONE 458 NG/DL (241-827)
== END ==
LOC: M RAD 10:01
PROVIDERS: ATTEND Family Medicine
DX: I10 Essential (primary) hypertension (principal); R53.83 Other fatigue; E03.9 Hypothyroidism, unspecified; Z79.899 Other long term (current) drug therapy

== ENCOUNTER → 2022-10-06 | Outpatient (CLI) | payer MEDICARE, OTHER ==
[~2022-10-06] MED LIST changes: +CLOP75TA99 PO; -PLAV1TAB2 PO
== END ==
LOC: M LAB 08:25
PROVIDERS: ATTEND Urology
DX: C61 Malignant neoplasm of prostate (principal)

== ENCOUNTER → 2022-12-17 | Outpatient (CLI) | payer MEDICARE, OTHER ==
[2022-12-17 11:05] LABS: HEMATOCRIT 37.9 % (42.0-52.0); HEMOGLOBIN 11.8 g/dl (13.5-17.5); MEAN CORPUSCULAR HEMOGLOBIN 29.1 pg (27.0-33.0); MEAN CORPUSCULAR HGB CONC 31.1 g/dl (32.0-36.5); MEAN CORPUSCULAR VOLUME 93.3 fl (80.0-96.0); PLATELET COUNT, AUTOMATED 200 10^3/uL (150-450); RED BLOOD COUNT 4.06 10^6/uL (4.30-6.10)
[2022-12-17 11:30] LABS: PROSTATIC SPECIFIC AG MONITOR 0.25 NG/ML (< 4.00)
[2022-12-17 11:32] LABS: ALBUMIN 3.9 G/DL (3.2-5.2); ALKALINE PHOSPHATASE 115 U/L (46-116); ALT/SGPT 31 U/L (7.0-40); AST/SGOT 24 U/L (<34); BLOOD UREA NITROGEN 21 MG/DL (9-23); CALCIUM LEVEL 9.6 MG/DL (8.3-10.6); CARBON DIOXIDE LEVEL 30 MMOL/L (20-31); CHLORIDE LEVEL 105 MMOL/L (98-107); CHOLESTEROL LEVEL 156 MG/DL (<200); CHOLESTEROL RISK RATIO 2.86 (<5); CREATININE FOR GFR 0.98 MG/DL (0.70-1.30); GLOMERULAR FILTRATION RATE > 60.0 (>42); GLUCOSE, FASTING 71 MG/DL (74-106); HDL CHOLESTEROL 54.4 MG/DL (>40); LDL CHOLESTEROL 94.2 MG/DL (<100); NON-HDL-C 101.6 MG/DL; POTASSIUM SERUM 3.9 MMOL/L (3.5-5.1); SODIUM LEVEL 141 MMOL/L (136-145); TOTAL PROTEIN 7.3 G/DL (5.7-8.2); TRIGLYCERIDES LEVEL 37 MG/DL (<150)
[2022-12-17 11:34] LABS: THYROID STIMULATING HORMONE 2.207 uIU/ML (0.55-4.78)
== END ==
LOC: M RAD 09:42
PROVIDERS: ATTEND Family Medicine
DX: I10 Essential (primary) hypertension (principal); R53.83 Other fatigue; E03.9 Hypothyroidism, unspecified; Z79.899 Other long term (current) drug therapy

== ENCOUNTER 2023-02-23 17:17 | Emergency (ER) | payer MEDICARE, OTHER ==
[~2023-02-23] VITALS: Ht 172.7 cm; Wt 79.7 kg
[2023-02-23 17:17] VITALS: TEMP 98.2
[2023-02-23] MEDS ORDERED: BACITRACIN OINTMENT 30GM TUBE TOP STA (20:14)
[2023-02-23 20:30] VITALS: BP 143/78; O2SAT 98
== END 2023-02-23 20:37 | disposition home or self-care (01) ==
LOC: M ED 17:17
DX: S60.415A Abrasion of left ring finger, initial encounter (principal); W23.0XXA Caught, crushed, jammed, or pinched between moving objects, initial encounter; I10 Essential (primary) hypertension; E78.5 Hyperlipidemia, unspecified; C61 Malignant neoplasm of prostate; F17.200 Nicotine dependence, unspecified, uncomplicated; Z86.79 Personal history of other diseases of the circulatory system; Z86.73 Personal history of transient ischemic attack (TIA), and cerebral infarction without residual deficits; Z79.02 Long term (current) use of antithrombotics/antiplatelets; Z79.899 Other long term (current) drug therapy

== ENCOUNTER → 2023-03-29 | Outpatient (CLI) | payer MEDICARE, OTHER | LOC: M LAB 09:44 | PROVIDERS: ATTEND Urology | DX: C61 Malignant neoplasm of prostate (principal) ==

== ENCOUNTER → 2023-07-20 | Outpatient (CLI) | payer MEDICARE, OTHER ==
[2023-07-20 12:34] LABS: BLOOD UREA NITROGEN 14 MG/DL (9-23); CALCIUM LEVEL 9.7 MG/DL (8.3-10.6); CARBON DIOXIDE LEVEL 31 MMOL/L (20-31); CHLORIDE LEVEL 105 MMOL/L (98-107); CREATININE FOR GFR 0.96 MG/DL (0.70-1.30); GLOMERULAR FILTRATION RATE > 60.0 (>42); GLUCOSE, FASTING 79 MG/DL (74-106); POTASSIUM SERUM 3.8 MMOL/L (3.5-5.1); SODIUM LEVEL 141 MMOL/L (136-145)
== END ==
LOC: M LAB 11:13
PROVIDERS: ATTEND Physician Assistant
DX: I10 Essential (primary) hypertension (principal)

== ENCOUNTER → 2023-10-07 | Outpatient (CLI) | payer MEDICARE, OTHER | LOC: M LAB 09:30 | PROVIDERS: ATTEND Urology | DX: C61 Malignant neoplasm of prostate (principal) ==

== ENCOUNTER → 2023-11-16 | Outpatient (REF) | payer MEDICARE, OTHER | LOC: M SFHCDERM 17:44 | PROVIDERS: ATTEND Physician Assistant | DX: L57.0 Actinic keratosis (principal) ==

== ENCOUNTER → 2024-03-26 | Outpatient (CLI) | payer MEDICARE, OTHER ==
[~2024-03-26] MED LIST changes: +DOXY-323 PO; -DOXY-443 PO
== END ==
LOC: M LAB 10:04
PROVIDERS: ATTEND Urology
DX: C61 Malignant neoplasm of prostate (principal)

== ENCOUNTER → 2024-06-19 | Outpatient (CLI) | payer MEDICARE, OTHER ==
[~2024-06-19] MED LIST changes: -DOXY-323 PO; +DOXY-441 PO
[2024-06-19 12:05] LABS: HEMATOCRIT 36.4 % (42.0-52.0); HEMOGLOBIN 11.5 g/dl (13.5-17.5); MEAN CORPUSCULAR HEMOGLOBIN 29.3 pg (27.0-33.0); MEAN CORPUSCULAR HGB CONC 31.6 g/dl (32.0-36.5); MEAN CORPUSCULAR VOLUME 92.6 fl (80.0-96.0); PLATELET COUNT, AUTOMATED 209 10^3/uL (150-450); RED BLOOD COUNT 3.93 10^6/uL (4.30-6.10); WHITE BLOOD COUNT 4.6 10^3/uL (4.0-10.0)
[2024-06-19 12:17] LABS: INR 0.95; PROTHROMBIN TIME 12.9 SECONDS (12.5-14.5)
[2024-06-19 12:24] LABS: HEMOGLOBIN A1c 4.8 % (4.0-6.0)
[2024-06-19 12:39] LABS: ALBUMIN 3.8 G/DL (3.2-5.2); ALKALINE PHOSPHATASE 134 U/L (40-129); ALT/SGPT 34 U/L (7.0-40); AST/SGOT 16 U/L (<34); BILIRUBIN,TOTAL 0.9 MG/DL (0.3-1.2); BLOOD UREA NITROGEN 18 MG/DL (9-23); CARBON DIOXIDE LEVEL 32 MMOL/L (20-31); CHLORIDE LEVEL 103 MMOL/L (98-107); CHOLESTEROL LEVEL 170 MG/DL (<200); CHOLESTEROL RISK RATIO 3.44 (<5); CREATININE FOR GFR 0.95 MG/DL (0.70-1.30); GLOMERULAR FILTRATION RATE > 60.0 (>42); GLUCOSE, FASTING 94 MG/DL (74-106); HDL CHOLESTEROL 49.4 MG/DL (>40); NON-HDL-C 120.6 MG/DL; POTASSIUM SERUM 3.8 MMOL/L (3.5-5.1); SODIUM LEVEL 140 MMOL/L (136-145); TOTAL PROTEIN 7.9 G/DL (5.7-8.2); TRIGLYCERIDES LEVEL 63 MG/DL (<150)
== END ==
LOC: M RAD 11:22
PROVIDERS: ATTEND Family Medicine
DX: R53.83 Other fatigue (principal); I10 Essential (primary) hypertension; E03.9 Hypothyroidism, unspecified; Z79.899 Other long term (current) drug therapy; Z79.01 Long term (current) use of anticoagulants

== ENCOUNTER 2024-10-08 09:50 | Day surgery (SDC) | payer MEDICARE, OTHER ==
[~2024-10-08] VITALS: Ht 177.8 cm; Wt 77.1 kg
[2024-10-08] MEDS ORDERED: propofoL 200 MG/20 ML VIAL As Ordered ONE (11:43)
[2024-10-08] MEDS ORDERED: LIDOCAINE 2% 100MG/5ML SDV (FOR ANES.) As Ordered ONE (11:43)
[2024-10-08] MEDS ORDERED: propofoL 500 MG/50 ML VIAL As Ordered ONE (11:43)
[2024-10-08 12:06] VITALS: TEMP 97.7
[2024-10-08 12:24] VITALS: BP 138/87; O2SAT 99
== END 2024-10-08 12:34 | disposition home or self-care (01) ==
LOC: M OPP 09:50
PROVIDERS: ATTEND Internal Medicine Gastroenterology
DX: K57.30 Diverticulosis of large intestine without perforation or abscess without bleeding (principal); K62.5 Hemorrhage of anus and rectum; K64.0 First degree hemorrhoids; Z95.0 Presence of cardiac pacemaker; Z79.02 Long term (current) use of antithrombotics/antiplatelets; Z79.899 Other long term (current) drug therapy

== ENCOUNTER → 2024-10-11 | Outpatient (CLI) | payer MEDICARE, OTHER | LOC: M LAB 08:42 | PROVIDERS: ATTEND Urology | DX: C61 Malignant neoplasm of prostate (principal) ==

== ENCOUNTER → 2025-03-22 | Outpatient (CLI) | payer MEDICARE, OTHER ==
[2025-03-22 15:31] LABS: BASO # 0.0 10^3/uL (0.0-0.2); BASO % 0.4 % (0.0-1.0); EOS # 0.1 10^3/uL (0.0-0.5); EOS % 2.6 % (0.0-3.0); LYMPH # 1.6 10^3/uL (1.5-5.0); LYMPH % 29.5 % (24.0-44.0); MONO # 0.4 10^3/uL (0.0-0.8); MONO % 8.1 % (2.0-8.0); NEUTROPHILS # 3.2 10^3/uL (1.5-8.5); NEUTROPHILS % 59.2 % (36.0-66.0); PLATELET COUNT, AUTOMATED 192 10^3/uL (150-450)
[2025-03-22 15:37] LABS: CALCIUM LEVEL 9.6 MG/DL (8.3-10.6); CARBON DIOXIDE LEVEL 31.0 MMOL/L (20-31); CHLORIDE LEVEL 106.0 MMOL/L (98-107); CHOLESTEROL LEVEL 212.0 MG/DL (<200); CHOLESTEROL RISK RATIO 4.93 (<5); CREATININE FOR GFR 1.05 MG/DL (0.70-1.30); GLOMERULAR FILTRATION RATE 72.2 (>42); LDL CHOLESTEROL 156.4 MG/DL (<100); NON-HDL-C 169.0 MG/DL; POTASSIUM SERUM 4.4 MMOL/L (3.5-5.1); SODIUM LEVEL 145.0 MMOL/L (136-145); TRIGLYCERIDES LEVEL 63.0 MG/DL (<150)
[2025-03-22 15:55] LABS: ESTIMATED AVERAGE GLUCOSE 97.0 MG/DL (60-110)
== END ==
LOC: M PLALAB 12:16
PROVIDERS: ATTEND Student in an Organized Health Care Education/Training Program
DX: Z00.00 Encounter for general adult medical examination without abnormal findings (principal); E03.9 Hypothyroidism, unspecified; Z79.899 Other long term (current) drug therapy

== ENCOUNTER → 2025-03-25 | Outpatient (CLI) | payer MEDICARE, OTHER | LOC: M LAB 08:28 | PROVIDERS: ATTEND Urology | DX: C61 Malignant neoplasm of prostate (principal) ==

== ENCOUNTER → 2025-06-26 | Outpatient (CLI) | payer MEDICARE, OTHER ==
[2025-06-26 10:19] LABS: BASO # 0.0 10^3/uL (0.0-0.2); BASO % 0.6 % (0.0-1.0); EOS # 0.2 10^3/uL (0.0-0.5); EOS % 3.7 % (0.0-3.0); LYMPH # 1.9 10^3/uL (1.5-5.0); LYMPH % 34.2 % (24.0-44.0); MONO # 0.4 10^3/uL (0.0-0.8); MONO % 7.2 % (2.0-8.0); NEUTROPHILS # 3.0 10^3/uL (1.5-8.5); NEUTROPHILS % 54.1 % (36.0-66.0); PLATELET COUNT, AUTOMATED 216 10^3/uL (150-450)
[2025-06-26 10:43] LABS: CALCIUM LEVEL 9.4 MG/DL (8.3-10.6); CARBON DIOXIDE LEVEL 31 MMOL/L (20-31); CHLORIDE LEVEL 103 MMOL/L (98-107); CREATININE FOR GFR 1.07 MG/DL (0.70-1.30); GLOMERULAR FILTRATION RATE 70.6 (>42); IRON (FE) 72 UG/DL (65-175); POTASSIUM SERUM 4.3 MMOL/L (3.5-5.1); SODIUM LEVEL 140 MMOL/L (136-145)
[2025-06-26 10:46] LABS: VITAMIN B12 LEVEL 921 PG/ML (211-911)
[2025-06-26 12:10] LABS: PLATELET ESTIMATE NORMAL (NORMAL)
== END ==
LOC: M PLALAB 09:04
PROVIDERS: ATTEND Student in an Organized Health Care Education/Training Program
DX: D64.9 Anemia, unspecified (principal); I10 Essential (primary) hypertension

== ENCOUNTER → 2025-06-26 | Outpatient (REF) | payer MEDICARE, OTHER | LOC: M SFHCPLAZ 08:38 | PROVIDERS: ATTEND Student in an Organized Health Care Education/Training Program | DX: Z53.9 Procedure and treatment not carried out, unspecified reason (principal) ==